=== PATIENT | female | born 1955 | race Caucasian/White ===

== ENCOUNTER 2020-05-27 15:29 | Outpatient (REF) | payer MEDICARE, SELFPAY | END 2020-05-27 15:30 | disposition home or self-care (01) | LOC: HO.LAB 15:29 | PROVIDERS: Visit Provider Internal Medicine | DX: Z20.822 Contact with and (suspected) exposure to COVID-19 (principal) | CPT/HCPCS: 36415; C9803; U0003; U0005 ==

== ENCOUNTER 2020-05-31 12:44 | Outpatient (REF) | payer MEDICARE, SELFPAY ==
--- NOTE | ~2020-05-31 | XR_ITS ---
EXAMINATION: XR HIP, RIGHT CLINICAL INFORMATION: Pain COMPARISON: None TECHNIQUE: Two views of the right hip and one view of the pelvis. FINDINGS: There is mild joint space narrowing of both hip joints. No fracture, dislocation or bone lesion is seen. Bones of the pelvis are unremarkable. There may be facet arthritis of the lower lumbar spine. Soft tissues are unremarkable. XR/XR hip RT w PEL1V IMPRESSION: Mild bilateral hip joint space narrowing.
== END 2020-05-31 12:45 | disposition home or self-care (01) ==
LOC: HO.HOSX 12:44
PROVIDERS: Visit Provider Orthopaedic Surgery
DX: M25.551 Pain in right hip (principal)
CPT/HCPCS: 73502

== ENCOUNTER → 2020-06-01 07:58 | Outpatient (BNVA) | payer MEDICARE, SELFPAY | PROVIDERS: PCP Internal Medicine; Visit Provider Orthopaedic Surgery | DX: M70.61 Trochanteric bursitis, right hip (principal) | CPT/HCPCS: 99202 ==

== ENCOUNTER 2024-06-19 16:42 | Emergency (ER) | payer MEDICARE, SELFPAY ==
--- NOTE | ~2024-06-19 | CT_ITS ---
CLINICAL HISTORY: fall with head strike, +LOC CT head without contrast Comparison: CT of the face from the same day. Findings: No acute intracranial hemorrhage. No midline shift or hydrocephalus. No large arterial territorial infarction accounting for artifacts. Scalp hematoma including over the anterior frontal convexities with soft tissue defect and gas. Acute bilateral nasal bone fractures. Small air-fluid level in the sphenoid sinus. Small right mastoid effusion. IMPRESSION: 1. No acute intracranial hemorrhage. 2. Anterior scalp hematoma with fundal convexity scalp defect. 3. Acute bilateral nasal bone fractures. This document has been electronically signed by: Buddy Todd MD on 06/19/2024 19:30:56
--- NOTE | ~2024-06-19 | CT_ITS ---
CLINICAL HISTORY: fall , chest pain, multiple ribs fracture CT chest without contrast Comparison: None available Findings: Mild rib deformities appear old/chronic. No pneumothorax or pleural effusion. Mild pleural thickening on the left. Mild bibasilar atelectasis and scarring, left worse than right. Previous left mastectomy changes noted. Two in 3 mm pulmonary nodules are solid in the right upper lobe. Pleural-based pulmonary nodule is 5 mm solid posterior in the right lower lobe. [id number] hiatal hernia. Imaged upper abdomen is otherwise unremarkable. Degenerative changes include imaged shoulders and imaged spine. Minimal vertebral height losses appear old. IMPRESSION: 1. Mild atelectasis. 2. 5 mm pleural-based pulmonary nodule in the right lower lobe. Please consider 3 to six-month follow-up to ensure continued stability This document has been electronically signed by: Buddy Todd MD on 06/19/2024 20:07:25
--- NOTE | ~2024-06-19 | CT_ITS ---
CLINICAL HISTORY: fall on concrete, periorbital ecchymosis, nasal sw CT maxillofacial without contrast Comparison: None Findings: Acute comminuted bilateral nasal bone fractures with anterior depression. Multiple fracture fragments deviate to the left. Acute comminuted fracture of the nasal septum with, major anterior fragments, displaced to the right. Mild mucosal thickening of the imaged paranasal sinuses. Air-fluid levels in the sphenoid sinus. Soft tissue gas is multifocal including nasal bridge with soft tissue swelling and superficial anterior hematoma of the nose. Bilateral periorbital soft tissue swelling appears preseptal. No displaced acute orbital wall fracture. No displaced mandible fracture. No dislocation of the temporomandibular joints. Devitalized bone of the maxilla secondary to absence of the teeth. Metal artifacts noted. Degenerative changes include imaged spine. Additional soft tissue swelling with scalp defect and gas over the frontal convexities anterior forehead. IMPRESSION: 1. Acute comminuted bilateral nasal bone fractures. 2. Acute comminuted nasal septum fracture. This document has been electronically signed by: Buddy Todd MD on 06/19/2024 19:33:04
--- NOTE | ~2024-06-19 | CT_ITS ---
CLINICAL HISTORY: fall with head strike CT cervical spine without contrast Comparison: None Findings: No acute fracture of the cervical spine. Straightening of the cervical lordosis. No significant listhesis. Disc osteophyte complexes with mild-moderate spinal canal stenosis at C4-C5, C5-C6, C6-C7, and C7-T1. Spinal stenosis appears most pronounced at C5-C6. Multifocal moderate foraminal narrowing including C4-C5 to the cervicothoracic junction; with moderate to severe foraminal narrowing at C5-C6 and C6-C7. Ligament calcifications are multifocal. No paraspinal hematoma. Metal artifacts are noted. Mild scarring of the imaged lung apices. Secretions of the imaged trachea airway. IMPRESSION: No acute fracture of the cervical spine. This document has been electronically signed by: Buddy Todd MD on 06/19/2024 19:34:08
--- NOTE | 2024-06-19 16:47 | ED.GENADULT ---
HPI - General Adult General Chief complaint: Head Injury Stated complaint: fell,facial inj Time Seen by Provider: 06/19/24 17:33 Source: patient and family (Friend) Mode of arrival: ambulatory Limitations: no limitations History of Present Illness ED Provider: DR. Che HPI narrative: 68-year-old female was walking with her dog which pulled her forward causing her to fall landing on her both elbows right hand and face, patient reported a brief period of LOC. Patient sustained bilateral chest pain, 2 lacerations on the forehead, small laceration on the inner surface of the lower lip, nose hematoma, bilateral periorbital hematomas, right elbow abrasion, right hand small abrasion. Related Data Home Medications ?Medication ?Instructions ?Recorded ?Confirmed levothyroxine 75 mcg capsule 75 mcg PO DAILY 06/01/20 zolpidem 5 mg tablet 5 mg PO BEDTIME PRN 06/01/20 Previous Rx's ?Medication ?Instructions ?Recorded ibuprofen 600 mg tablet 600 mg PO Q8H PRN pain #14 tabs 06/19/24 Allergies Allergy/AdvReac Type Severity Reaction Status Date / Time acetaminophen [From Percocet] AdvReac Gastrointestinal Verified 06/19/24 17:02 Upset oxycodone [From Percocet] AdvReac Gastrointestinal Verified 06/19/24 17:02 Upset Review of Systems Review of Systems: All other systems are reviewed and are negative Constitutional: Reports as per HPI and Reports no additional constitutional complaints Eyes: Reports as per HPI and Reports no additional eye complaints Reports system reviewed and no additional complaints, except as documented Cardiovascular: Reports as per HPI and Reports no additional cardiovascular complaints Respiratory: Reports as per HPI and Reports no additional respiratory complaints Gastrointestinal: Reports as per HPI and Reports no additional gastrointestinal complaints Genitourinary: Reports no additional female genitourinary complaints Musculoskeletal: Reports no additional musculoskeletal complaints Skin/Breast: Reports system reviewed and no additional complaints, except as docu Psychiatric: Reports no additional psychiatric complaints Endocrine: Reports no additional endocrine complaints Hematologic/Lymphatic: Reports no additional hematologic/lymphatic complaints Allergic/Immunologic: Reports no additional allergic/immunologic complaints Reports system reviewed and no additional complaints, except as documented and Reports Abnormal speech present PMFSH Past Medical History Medical History Hx of breast cancer Hypercholesteremia Surgical History H/O mastectomy Social History Social History Smoked in Last 30 Days: No Use of substances other than those prescribed or required for medical reasons: No Advance Directives: No Advance Directives Information Provided: No Current occupational status: retired Physical Exam ED Vital Signs: Vital Signs - 24 hr 06/19/24 16:48 06/19/24 18:31 06/19/24 20:00 Temperature 97 F 98.0 F 98.1 F Pulse Rate 72 69 57 Respiratory Rate 16 18 17 Blood Pressure 185/69 H 147/65 H 162/70 H Pulse Oximetry 97 95 97 Oxygen Delivery Method Room Air Room Air Room Air BMI result Body Mass Index 36.9 Vital signs have been reviewed and appear to be correct. Blood pressure elevated. Heart rate normal. Respiratory rate normal. Temperature normal. Oxygen saturation normal. Appearance: Alert. Oriented X3. No acute distress. Head: Normal external exam. Normocephalic. Atraumatic. No Real signs noted. No raccoon eyes noted. Mouth exam: Less than 1 cm laceration on the inner mucosal surface of the lower lip, no active bleeding. Face: Bilateral periorbital hematoma, diffuse nasal hematoma, no septal hematoma, no deviated septum, tenderness to touch on the nasal bones Eyes: PERRLA. EOMI. Conjunctiva and sclera normal. Eyelids normal. ENT: TM's Normal. Pharynx normal. Uvula midline. Moist mucous membranes. No trismus noted. No drooling noted. No muffled voice noted. Neck: Normal inspection. Neck supple. FROM. No adenopathy. Thyroid Normal. No meningeal signs. No neck mass noted. CVS: Normal heart rate and rhythm. Heart sound normal. No murmurs noted. Pulses normal throughout. Respiratory: No respiratory distress. Painless inspiration. Breath sounds normal. No wheezes/rales/rhonchi noted. Chest nontender. No accessory muscle usage noted or decreased air movement noted. Abdomen: Soft and nontender. Bowel sounds normal in all 4 quadrants. No distention noted. No organomegaly noted. No visible injury noted. Back: No CVA tenderness. Full range of motion noted. Skin: Skin warm and dry. Normal skin color. Normal skin turgor. No rashes/lesions/lacerations noted. Extremities: No lower extremity edema. Extremities exhibit normal range of motion. Extremities nontender. Neuro: GCS 15. Mental status: Normal attention, orientation, memory, and affect. Cranial nerves: Pupils are equal, round and reactive to light, EOMI, visual rey are fall, face is symmetric, facial sensations are normal. Motor examination normal muscle tone, strength to 4 extremities. DTR are +2, planter's are flexor. Sensory exam; normal coordination, no ataxia, gait stable. Cerebellar exam: Woqlpi-mr-sasz and ecdr-fh-hzlu is normal. Extrapyramidal system: No tremors, no rigidity with normal facial expressions. Pronator drift not present Course Course Course Narrative: This is a rapid medical exam performed by Ronaldo Mercedes NP: Additional HPI, ROS, PE not included below will be deferred to primary provider. Patient is a 68-year-old female presenting to the ED with multiple facial injuries. Was walking her dog around noon when the dog saw another dog and pulled her to the ground. She landed directly on her face. Family states that once patient developed bruising under her eyes they decided to bring her to the ED. Tdap not utd. Vision normal. Denies loose teeth. Took Aleve prior to arrival. Bilateral rib pain. Has blood when blowing her nose. Had to call son in law to help her up. Believes she had LOC. Plan: CT head, neck, and facial bones, rib xray, update Tdap Reevaluation(s) Reevaluation #1: S/p fall with head injury. 1. Closed head injury with GCS of [address] 2. Nasal and periorbital hematomas with nasal fracture. 3. 2 small facial laceration patient agreed to Dermabond but not 2 stitches. 4. Small laceration on the inner aspect of the lower lip that patient is refusing to suture. 5. Unknown tetanus patient declined tetanus booster. 6. Bilateral chest pain CT shows no rib fracture, no lung contusion. Hemodynamically stable with O2 sat of 97% on air. CT reveals right lower lung nodule patient was history of breast cancer which raise concern of metastases, findings were discussed with the patient and to follow-up with PCP. Time: 20:30 Medications Administered Discontinued Medications Generic Name Dose Route Start Last Admin Trade Name Freq PRN Reason Stop Dose Admin Bacitracin 1 appl 06/19/24 18:05 06/19/24 18:44 Bacitracin Oint 0.9 Gm Packet TOPICAL 06/19/24 18:06 1 appl ONCE ONE Administration Protocol Medical Decision Making Differential Diagnosis Differential Diagnoses: The differential diagnosis associated with the presentation includes (Intracranial bleed, facial fracture, nasal fracture, cervical spine fracture, bilateral rib fracture, lung contusion, extremity injury.) Admission/Observation Consideration of admission/observation: Escalation of care including admission/observation considered Independent Interpretation I performed an independent interpretation of an: CT Scan (Head: Facial: Cervical spine: No acute intracranial hemorrhage/ No acute cervical spine fracture./1. Acute comminuted bilateral nasal bone fractures. 2. Acute comminuted nasal septum fracture. /Chest:5 mm pleural-based pulmonary nodule in the right lower lobe. Please consider 3 to six-month foll) Radiology Impression Discussion of test interpretation with radiology: I have reviewed the radiologist's reading. Discharge Plan Discharge Clinical Impression: Laceration of lip, Closed head injury, Forehead laceration, Acute traumatic injury of chest wall, Contusion of right elbow, Lung nodule, Closed fracture nasal bone Patient Disposition: Home, Self-Care Instructions: Head Injury (ED), Pulmonary Nodules (ED), Laceration Without Closure (ED) Prescriptions: New ibuprofen 600 mg tablet 600 mg PO Q8H PRN (Reason: pain) Qty: 14 0RF Referrals: Margo Collazo, TRISTA [Primary Care Provider] - Warren Mckeon [Physician] - Print Language: [place] Arabian
[2024-06-19 16:48] VITALS: BP 185/69; PULSE 72; RESP 16; TEMP 36.1; O2SAT 97; BMI 36.9
--- OUTSIDE RECORDS SUMMARY | 2024-06-19 18:28 | XMS_ITS | Clinical Summary ---
Author Organization [facility] Address [address] [place] [address] Phone Care Team Providers Care Soapstoner Name Role Phone Margo Collazo NP Primary Care Provider [phone] Allergies Active Allergy Reactions Criticality Noted Date Comments Hydrocodone-Acetaminophen 04/12/2018 Oxycodone-Acetaminophen 04/12/2018 Medications hydrocortisone 2.5 % ointment Apply topically 2 (two) times a day. Active levothyroxine (SYNTHROID, LEVOTHROID) 75 mcg tablet Take 1 tablet (75 mcg total) by mouth every morning on an empty stomach. Active rosuvastatin (CRESTOR) 20 mg tablet Take 1 tablet (20 mg total) by mouth 1 (one) time each day. Active omeprazole (PriLOSEC) [address] capsule TAKE 1 CAPSULE BY MOUTH EVERY DAY 90 capsule 1 4 Active traZODone (DESYREL) 100 mg tablet TAKE 1 TABLET BY MOUTH EVERY DAY AT BEDTIME NEEDED FOR SLEEP 90 tablet 1 5 Active hydrOXYzine HCL (ATARAX) 25 mg tablet Take 1 tablet (25 mg total) by mouth 1 (one) time. 4 Active naproxen (NAPROSYN) 500 mg tabletIndicatio ns:Neck pain,Chronic right shoulder pain Take 1 tablet (500 mg total) by mouth 2 (two) times a day if needed for mild pain (pain). 60 tablet 11 5 04/02/19 26 Active fluticasone propionate (FLONASE) 50 mcg/actuation nasal sprayIndication s:Acute rhinitis Administer 2 sprays into each nostril 1 (one) time each day. Shake gently. Before first use, prime pump. After use, clean tip and replace cap. 16 g 5 5 04/02/19 26 Active cetirizine (ZyrTEC) 10 mg tabletIndicatio ns:Acute rhinitis Take 1 tablet (10 mg total) by mouth 1 (one) time each day. 30 each 2 5 07/02/19 25 Active escitalopram (LEXAPRO) 10 mg tablet Take 1 tablet (10 mg total) by mouth 1 (one) time each day. 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 05/2023 Gastroesophageal reflux disease without esophagi tis 02/05/2024 Primary insomnia 02/05/2024 AZIZA (generalized anxiety disorder) 02/05/2024 Malignant neoplasm of overla pping sites of left breast in female, estrogen receptor negative ([facility] V24, [facility] V28) 11/01/2023 Encounters Date Type Department Care Team Description 05/27/2024 Telephone Internal Medicine - [address] [phone] Margo Collazo NP Referral (External Referral: QMPT) 04/08/2024 Telephone Internal Medicine - [address] [phone] Sid Best MD Referral (Fax requesting insurance referral - physiatry/PM&R) 04/07/2024 Telephone Internal Medicine - [address] [phone] Margo Collazo NP Medication Problem 04/02/2024 11:15 AM EST Office Visit Internal Medicine - [place] [address] [place] [address] Simin Huang, POLI Neck pain (Primary Dx); Chronic right shoulder pain; Class 2 obesity without serious comorbidity with body mass index (BMI) of 36.0 to 36.9 in adult, unspecified obesity type; Acute rhinitis; Gastroesophageal reflux disease without esophagitis; Eczema, unspecified type; Hypercholesterolemia 03/31/2024 9:50 AM EST Lab Draw Station [address] Hypercholesterolemia from Last 3 Months Immunizations Name Administration Dates Next Due Pfizer SARS-CoV-2 COVID-19, mRNA, LNP-S, preservative free 06/09/2020 Surgical History Surgery Date Site/Laterality Comments OTHER SURGICAL HISTORY Left PROCEDURE: HISTORICAL COMPLETE UNILATERAL MASTECTOMY Medical History Medical History Date Comments History of breast cancer DX:Hist ory of breast cancer Eczema herpeticum DX:Eczema herp eticum Gastro-esophageal reflux dis ease without esophagitis DX:Gastro-esophageal reflux disease without esophagitis Family History Medical History Relation Name Comments Coronary artery disease Father Coronary artery disease Mother Hypertension Mother Relation Name Status Comments Father Mother Social History Tobacco Use Types Packs/Day Years Used Date Smoking Tobacco: Former Cigarettes Smokeless Tobacco: Never Tobacco Cessation:Counseling Given: Not Answered Alcohol Use Standard Drinks/Week Comments Not Currently 0 (1 standard drink = 0.6 oz pur e alcohol) Comments No Sex and Gender Information Value Date Recorded Sex Assigned at Not on file Legal Sex Female 1:32 PM EST Gender Identity Not on file Sexual Orientation Not on file Obstetrics History Last Filed Vital Signs Vital Sign Reading Time Taken Comments Blood Pressure 143/76 04/02/2024 11:14 AM EST Pulse 66 04/02/2024 11:14 AM EST auto cuff Temperature 36.1 ??C (97 ??F) 03/11/2024 2:39 PM EST Respiratory Rate - - Oxygen Saturation 98% 03/11/2024 2:39 PM EST Inhaled Oxygen Concentration - - Weight 91.1 kg (200 lb 14.4 oz) 025 11:14 AM EST Height 157.5 cm (5' 2 ) 02/05/2024 10:0 6 AM EST Body Mass Index 36.75 02/05/2024 10:06 AM EST Plan of Treatment Upcoming Encounters Date Type Department Care Team (Late st Contact Info) Description 08/05/2024 1:30 PM EDT Office Visit Internal Medicine - [facility] [address] [place] [address] Margo Collazo NP [address] [place] [address] 09/10/2024 10:00 AM EDT Office Visit [facility] Hematology Oncology [address] [place] [phone] Chris Richey MD [address] [place] [phone] 12/17/2024 10:30 AM EDT Consult Bariatric Surgery - [place] [address] [phone] Aarti Yip PA [address] [address] Health Maintenance Due Date Last Done Comments DTaP,Tdap,and Td Vaccines (1 - Tdap) 1973 Pneumococcal Vaccine: 50+ Years (1 of 2 - PCV) 1973 Zoster Vaccines (1 of 2) 1973 COVID-19 Vaccine (2 - Pfizer risk series) 06/30/2020 06/09/2020 Depression Screening 01/31/2022 Falls Risk Assessment 01/31/2022 Hepatitis C Screening 01/31/2022 Osteoporosis Screening (Bone Density Screening) 01/31/2022 Social Influencers of Health Screening 01/31/2022 Hypertension/CHF/CAD Annual BMP Blood Test 07/30/2024 07/31/2023 Influenza Vaccine (Season Ended) 2024 Breast Cancer Screening 09/02/2025 09/03/2023 Cholesterol Screening (Lipid Panel) 03/31/2029 03/31/2024, 07/31/2023 RSV Immunization Adult Patients (1 - 1-dose 75+ series) 2029 Colorectal Cancer Screening: Colonoscopy 08/31/2032 08/31/2022 HIB Vaccines Aged Out No longer eligi ble based on patient's age to complete this topic HPV Vaccines Aged Out No longer eligi ble based on patient's age to complete this topic Hepatitis A Vaccines Aged Out No long er eligible based on patient's age to complete this topic Hepatitis B Vaccines Aged Out No long er eligible based on patient's age to complete this topic IPV Vaccines Aged Out No longer eligi ble based on patient's age to complete this topic MMR Vaccines Aged Out No longer eligi ble based on patient's age to complete this topic Meningococcal ACWY Vaccine Aged Out N o longer eligible based on patient's age to complete this topic Meningococcal B Vaccine Aged Out No l onger eligible based on patient's age to complete this topic RSV Immunization Patients Under 20 months Aged Out No longer eligible b ased on patient's age to complete this topic Varicella Vaccines Aged Out No longer eligible based on patient's age to complete this topic Procedures Procedure Name Priority Date/Time Associated Diagnosis Comments ALANINE AMINOTRANSFERASE Routine 025 9:57 AM EST Hypercholesterolem ia ASPARTATE AMINOTRANSFERASE Routine 03/31/2024 9:57 AM EST Hypercholesterolem ia LIPID PANEL WITH REFLEX TO DIRECT LDL Routine 03/31/2024 9:57 AM EST Hypercholesterolem ia from Last 3 Months Results * (ABNORMAL) Lipid panel with reflex to direct LDL (03/31/2024 9:57 AM EST) Cholesterol 355(H) 0 - 200 mg/dL LAB CHEMISTRY METHOD 03/31/2024 2:59 PM EST [facility] Triglycerides 89 0 - 150 mg/dL LAB CHEMISTRY METHOD 03/31/2024 2:59 PM [facility] HDL 66 >=40 mg/dL LAB CHEMISTRY METHOD 03/31/2024 2:59 PM [facility] LDL Calculated 271(H) 0 - 100 mg/dL LAB CHEMISTRY METHOD 03/31/2024 2:59 PM [facility] VLDL Cholesterol Hussein 17.8 mg/dL LAB CHEMISTRY METHOD 03/31/2024 2:59 PM EST [facility] Non HDL Chol. (LDL+VLDL) 289(H) <145 mg/dL LAB CHEMISTRY METHOD 03/31/2024 2:59 PM EST [facility] Chol/HDL Ratio 5.4(H) 0.0 - 4.4 LAB CHEMISTRY METHOD 03/31/2024 2:59 PM EST [facility] Blood Venous blood specimen / Unknown Venipuncture / Unknown 03/31/2024 9:57 AM EST 03/31/2024 9:57 AM EST Margo Collazo NP LAB BLOOD ORDERABLES Final Resu lt Performing Organization Address City/[facility]/ZIP Co de Phone Number [facility] [address] [place] [address], [place] [phone] * Alanine aminotransferase (03/31/2024 9:57 AM EST) ALT (SGPT) 16 10 - 60 unit/L LAB CHEMISTRY METHOD 03/31/2024 2:59 PM EST [facility] Blood Venous blood specimen / Unknown Venipuncture / Unknown 03/31/2024 9:57 AM EST 03/31/2024 9:57 AM EST us Margo Collazo NP LAB BLOOD ORDERABLES Final Resu lt [facility] [address] [place] [address], [place] [phone] * Aspartate aminotransferase (03/31/2024 9:57 AM EST) AST (SGOT) 15 10 - 42 unit/L LAB CHEMISTRY METHOD 03/31/2024 2:59 PM EST [facility] Blood Venous blood specimen / Unknown Venipuncture / Unknown 03/31/2024 9:57 AM EST 03/31/2024 9:57 AM EST us Margo Collazo NP LAB BLOOD ORDERABLES Final Resu lt [facility] [address] [place] [address], [place] [phone] from Last 3 Months Insurance [facility] Care Teams Soapstoner Relationship Specialty Start Date End Date Margo Collazo NP [address] [place] [address] PCP - General Primary Care 01/23/24
--- OUTSIDE RECORDS SUMMARY | 2024-06-19 18:28 | XMS_ITS | Encounter Summary ---
Author Organization [facility] Address [address] [place] [address] Care Team Providers Care Central Service Tech Name Role Phone Margo Collazo NP Primary Care Provider [phone] Reason for Visit * Reason Onset Date Comments Referral 01/22/2024 Encounter Details Date Type Department Care Team (Late st Contact Info) Description 01/22/2024 Telephone [facility] - [facility] [address] [place] [phone] Sid Best MD [address] [place] [place] [id number] Referral Social History Tobacco Use Types Packs/Day Years Used Date Smoking Tobacco: Former Cigarettes Smokeless Tobacco: Never Alcohol Use Standard Drinks/Week Comments Not Currently 0 (1 standard drink = 0.6 oz pur e alcohol) Comments Unknown Sex and Gender Information Value Date Recorded Sex Assigned at Not on file Legal Sex Female 1:32 PM EST Gender Identity Not on file Sexual Orientation Not on file documented as of this encounter Progress Notes * Noemi Almodovar - 01/23/2024 9:35 AM EST All set * Sid Best MD - 01/22/2024 11:03 AM EST Pls change pcp back to Margo-- I confirmed this in [facility] -- thank you * Christi Mosley MA - 01/22/2024 10:20 AM EST Referral pending * Silvia Fu - 01/22/2024 9:53 AM EST Referral Request: What insurance does the patient have today? bcbs Referrals cannot be processed if the insurance is not accurate. If the insurance listed above in red is NO BILLING INFORMATION FOUND FOR THIS ENCOUTNER The patients correct insurance must be obtained and registered in [facility] or their referral can not be processed. Is this a retro request? yes. If yes for what date of service do you need the retro referral? 09/04/23 Who is calling to request this referral? pt If the caller is not the patient, what is their name? not applicable Ask the patient WHO referred them to this specialty: Patient saw Dr. Best at [facility] for the problem and was told if symptoms did not resolve or worsen they would refer them to this specialty FIRST and LAST NAME of SPECIALIST PATIENT is seeing: Dr. Marcus Lord What specialty is this? opthelmology DIAGNOSIS Patient is being seen for (Not a body part or a procedure): cataracts Have you seen this SPECIALIST for this PROBLEM/DX before? If YES, when? Yes. 09/04/23 Have you checked REVIEW or the APPT DESK to see if this referral has already been done or has visits left? yes Is this visit: Initial Visit Address of Specialist: [address] [place] [address] Phone # of Specialist: [phone] Fax #: (if applicable): unknown Does patient have an appointment scheduled?: no Date of appointment- (including a retro-request): 09/04/23 Is this appointment related to: n/a documented in this encounter Plan of Treatment Upcoming Encounters Date Type Department Care Team (Late st Contact Info) Description 08/05/2024 1:30 PM EDT Office Visit Internal Medicine - [facility] [address] [place] [address] Margo Collazo NP [address] [place] [address] 09/10/2024 10:00 AM EDT Office Visit [facility] Hematology Oncology [address] [place] [phone] Chris Richey MD [address] [place] [phone] 12/17/2024 10:30 AM EDT Consult Bariatric Surgery - [place] [address] [phone] Aarti Yip PA [address] [address] documented as of this encounter Visit Diagnoses Diagnosis Cataract of both eyes, unspecified cataract type- Primary documented in this encounter Care Teams Central Service Tech Relationship Specialty Start Date End Date Margo Collazo NP [address] [place] [address] PCP - General Primary Care 01/23/24 documented as of this encounter
--- OUTSIDE RECORDS SUMMARY | 2024-06-19 18:28 | XMS_ITS | Clinical Summary ---
Author Organization [facility] Address [address] [place] [address] Care Team Providers Care Signals Intelligence Superintendent Name Role Phone Sid Best MD Primary Care Provider Allergies Active Allergy Reactions Criticality Noted Date Comments Oxycodone-Acetaminophen 04/12/2018 Hydrocodone-Acetaminophen 04/12/2018 Medications Medication Sig Dispensed Refills Start Date End Date Status levothyroxine (SYNTHROID) tablet 75 mcg Take 1 tablet (75 mcg total) by mouth every morning on an empty stomach. 0 Active omeprazole (PriLOSEC) 20 MG capsule Take 1 capsule (20 mg total) by mouth daily. prn 0 Active hydrocortisone 2.5 % ointment Apply topically 2 (two) times a day. 0 Active atorvastatin (LIPITOR) tablet 40 mg Take 1 tablet (40 mg total) by mouth daily. 0 Active zolpidem (AMBIEN) 5 MG tablet Take 1 tablet (5 mg total) by mouth every night at bedtime as needed for sleep. 30 tablet 5 12/23/2019 Active simvastatin (ZOCOR) tablet 40 mg Take 1 tablet (40 mg total) by mouth every night at bedtime. 0 Active citalopram (CeleXA) 10 MG tablet Take 1 tablet (10 mg total) by mouth daily. 0 Active Active Problems Problem Noted Date Diagnosed Date Malignant neoplasm of overla pping sites of left breast in female, estrogen receptor negative 04/15/2018 Social History Tobacco Use Types Packs/Day Years Used Date Smoking Tobacco: Never Smokeless Tobacco: Never Sex and Gender Information Value Date Recorded Sex Assigned at Not on file Gender Identity Not on file Sexual Orientation Not on file Job Start Date Occupation Industry Not on file Not on file Not on file Last Filed Vital Signs Vital Sign Reading Time Taken Comments Blood Pressure 143/79 08/21/2023 3:48 PM EDT Pulse 58 08/21/2023 3:48 PM EDT Temperature 36.8 ??C (98.3 ??F) 08/21/2023 3:48 PM ED T Respiratory Rate - - Oxygen Saturation 98% 08/21/2023 3:48 PM EDT Inhaled Oxygen Concentration - - Weight 87.3 kg (192 lb 6.4 oz) 08/21/2023 3:48 P M EDT Height 157.5 cm (5' 2 ) 08/21/2023 3:48 PM EDT Body Mass Index 35.19 08/21/2023 3:48 PM EDT Plan of Treatment Health Maintenance Due Date Last Done Comments Hepatitis C Screening 1955 Pneumococcal Vaccine (1 of 2 - PCV) 1960 Depression Screening 1966 BMI Counseling 1972 Preventative Health Evaluation 1972 DTap / Tdap / Td (1 - Tdap) 1973 Shingrix-Zoster Vaccine (1 of 2) 1973 Colon Cancer Screening (Colonoscopy) 10/06/1999 Breast Cancer Screening (Mammogram) 2004 Fall Risk Assessment 10/06/2019 Osteoporosis Screening (DEXA Scan) 10/06/2019 COVID-19 Vaccine (2 - Pfizer risk series) 06/30/2020 06/09/2020 Influenza Vaccine (#1) 2023 RSV Adult > 60+ Yrs or Pregn ant (1 - 1-dose 75+ series) 2029 Hepatitis B Vaccines Aged Out No long er eligible based on patient's age to complete this topic RSV Ped < 20 months Aged Out No longe r eligible based on patient's age to complete this topic Care Teams Signals Intelligence Superintendent Relationship Specialty Start Date End Date Sid Best MD PCP - General Internal Medicine 08/21/23
--- OUTSIDE RECORDS SUMMARY | 2024-06-19 18:28 | XMS_ITS | Patient Health Record ---
Author Organization [facility] Address [address] [place] [address] Care Team Providers Care Sales Service Representative Name Role Phone LONNIE (RETIRED) Jessie, VAN Primary Care Provider Unavailable Lidia Bolanos Unavailable [phone] Allergies Allergen (clinical drug ingredient) Drug/Non Drug Allergy documented on EMR Reaction Allergy Type Onset Date Status VICODIN Nausea/Vomiting/ Diarrhea Drug Allergy Active Reason For Referral No Information Medications Medication SIG (Take, Route, Fr equency, Duration) Notes Start Date End Date Status Levoxyl 50MCG 1 ORAL daily for -3 Cody-MJ 03/23/2011 Active Simvastatin 40MG 1 ORAL daily for -3 Cody-MJ 03/23/2011 Active Social History Sexual History Question Answer Notes Had sex in the past 12 months (vaginal, oral, or anal)? No Problems Problem Type SNOMED Code ICD Code Onset Dates Problem Status W/U Status Risk Notes Problem Postmenopausal atrophic vaginitis (12043448) Postmenopausal atrophic vaginitis (N95.2) Active confirmed Problem Malignant neoplasm of female breast (497587958) Malignant neoplasm of unspecified site of left female breast (C50.912) Active confirmed Problem Malignant neoplasm of female breast (455158688) Malignant neoplasm of other specified sites of female breast (174.8) Active confirmed Diag Problem Hypothyroidism (08362653) Unspecified hypothyroidism (244.9) Active confirmed Major Problem Hyperlipidemia (56636054) Other and unspecified hyperlipidemia (272.4) Active confirmed Major Problem Esophageal reflux (947727143) Esophageal reflux (530.81) Active confirmed Major Problem Menopausal symptom (70252395) Symptomatic menopausal or female climacteric states (627.2) Active confirmed Major Problem Gynecological examination normal (240498021369511) Routine gynecological examination (V72.31) Active confirmed Major Problem Screening for malignant neoplasm of colon (074928585) Special screening for malignant neoplasms, colon (V76.51) Active confirmed Major Plan Of Treatment Pending Test Test Name Order Date MAMMOGRAM, SCREENING 12/28/2014 MAMMOGRAM, SCREENING 01/05/2016 MM Digital Mammo Screening 01/05/2016 Insurance Providers Payer Name Payer Address Payer Phone Subscriber Number Group Number Insured Name Patient Relationship to Insured Coverage Start Date Coverage End Date [employer] [place] [address] [place] [address] [id number] MIYA SAUNDERS Self - patient is the insured Medical (General) History Medical History History ICD Code Malignant neoplasm of overlapping sites of left female breast C50.812 Gastro-esophageal reflux disease without esophagitis K21.9 Other hyperlipidemia E78.4 Hypothyroidism, unspecified E03.9 Menopausal and female climacteric states N95.1 Surgical History Surgery Date(Month/Year) Left Masectomy Colonoscopy Hospitalization History Reason Date(Month/Year) 2 Vaginal Deliveries See Surgical Hx
[2024-06-19 18:31] VITALS: BP 147/65; PULSE 69; RESP 18; TEMP 36.7; O2SAT 95
[2024-06-19] MEDS: Bacitracin Oint 0.9 GM PACKET 1 APPL TOPICAL (18:44)
[2024-06-19 20:00] VITALS: BP 162/70; PULSE 57; RESP 17; TEMP 36.7; O2SAT 97
--- NOTE | 2024-06-19 20:06 | PC.NURSE ---
pt has 7/10 pain to her right shoulder and upper arm pain.
--- NOTE | 2024-06-19 20:09 | PC.NURSE ---
pt is thinking about the tdap vac.
[2024-06-19] MEDS: Ibuprofen 800 MG TABLET PO (20:35)
[2024-06-19] MEDS: Lidocaine HCl Viscous 2 % 15 ML SOLUTION MUCOUS MEM (20:36)
[2024-06-19] MEDS: Diphth,Pertus(ACell),Tet Adult 0.5 ML SYRINGE IM (20:39)
--- NOTE | 2024-06-19 20:43 | PC.NURSE ---
lidocaine swish and spit is helping the pt. pt is requesting a dose for home. provider made aware. no bleeding from the lower lip.
[2024-06-19 20:58] VITALS: BP 162/70; PULSE 57; RESP 17; TEMP 36.7; O2SAT 97
== END 2024-06-19 21:00 | disposition home or self-care (01) ==
PROVIDERS: Emergency Provider Emergency Medicine; PCP Nurse Practitioner Primary Care
DX: S01.511A Laceration without foreign body of lip, initial encounter (principal); S01.81XA Laceration without foreign body of other part of head, initial encounter; S09.90XA Unspecified injury of head, initial encounter; S02.2XXA Fracture of nasal bones, initial encounter for closed fracture; S50.311A Abrasion of right elbow, initial encounter; S29.9XXA Unspecified injury of thorax, initial encounter; S00.33XA Contusion of nose, initial encounter; S00.12XA Contusion of left eyelid and periocular area, initial encounter; S00.11XA Contusion of right eyelid and periocular area, initial encounter; S60.511A Abrasion of right hand, initial encounter; W18.39XA Other fall on same level, initial encounter; R91.1 Solitary pulmonary nodule; E78.00 Pure hypercholesterolemia, unspecified; Z85.3 Personal history of malignant neoplasm of breast; Y93.K1 Activity, walking an animal; Y92.480 Sidewalk as the place of occurrence of the external cause; Y99.9 Unspecified external cause status; Z23 Encounter for immunization
CPT/HCPCS: 12011; 70450; 70486; 71250; 72125; 90471; 90715; 99284

== ENCOUNTER → 2024-06-19 16:52 | Outpatient (BNV) | payer MEDICARE, SELFPAY | PROVIDERS: Emergency Provider Emergency Medicine; PCP Nurse Practitioner Primary Care; Visit Provider Radiology Neuroradiology | DX: S02.2XXA Fracture of nasal bones, initial encounter for closed fracture (principal); S09.90XA Unspecified injury of head, initial encounter; S00.03XA Contusion of scalp, initial encounter; W01.198A Fall on same level from slipping, tripping and stumbling with subsequent striking against other object, initial encounter; R91.1 Solitary pulmonary nodule; S22.49XA Multiple fractures of ribs, unspecified side, initial encounter for closed fracture; W18.30XA Fall on same level, unspecified, initial encounter; R52 Pain, unspecified | CPT/HCPCS: 70450; 70486; 71250; 72125 ==

== ENCOUNTER 2024-09-26 11:59 | Emergency (ER) | payer MEDICARE, SELFPAY ==
[2024-09-26 12:07] VITALS: BP 147/78; PULSE 70; RESP 16; TEMP 36.3; O2SAT 98; BMI 35.7
--- NOTE | 2024-09-26 12:07 | ED.GENADULT ---
HPI - General Adult General Chief complaint: Fall Stated complaint: IV Fluids Time Seen by Provider: 09/26/24 15:05 Source: patient Mode of arrival: ambulatory Limitations: no limitations History of Present Illness ED Provider: HPI narrative: 68-year-old woman, presenting with reports of unsteady gait for many years, she states she has had an episode of nausea and dizziness this morning, was positional, has had vertigo in the past and it felt similar, she also had a fall last week and was seen at [facility], there is no CT of the brain done reported that point, but no vision changes or any worsening symptoms since the fall. No dysuria, she took amoxicillin for a dog bite, and has had nausea vomiting and diarrhea. States does not drink enough fluids Related Data Home Medications ?Medication ?Instructions ?Recorded ?Confirmed levothyroxine 75 mcg capsule 75 mcg PO DAILY 06/01/20 zolpidem 5 mg tablet 5 mg PO BEDTIME PRN 06/01/20 Previous Rx's ?Medication ?Instructions ?Recorded ibuprofen 600 mg tablet 600 mg PO Q8H PRN pain #14 tabs 06/19/24 lidocaine HCl 2 % mucosal solution 1 appl mucous membrane BID PRN 06/19/24 (Lidocaine Viscous) pain #100 mL methylprednisolone 4 mg tablets in 4 mg PO DAILY #21 ea 09/26/24 a dose pack (Medrol (Andrés)) scopolamine base 1 mg over 3 days 1 patch transdermal Q3D PRN 09/26/24 transdermal patch vertigo 7 days #4 ea Allergies Allergy/AdvReac Type Severity Reaction Status Date / Time acetaminophen (From Percocet) AdvReac Gastrointestinal Verified 09/26/24 12:12 Upset amoxicillin AdvReac Gastrointestinal Verified 09/26/24 12:13 Upset oxycodone (From Percocet) AdvReac Gastrointestinal Verified 09/26/24 12:12 Upset Review of Systems Constitutional: Constitutional: Reports as per [facility] Past Medical History Medical History Hx of breast cancer Hypercholesteremia Surgical History H/O mastectomy Social History Social History Advance Directives: No Advance Directives Information Provided: No Do you have a plan to hurt others: No Plan Current occupational status: retired Physical Exam ED Vital Signs: Vital Signs - 24 hr 09/26/24 12:07 09/26/24 14:41 09/26/24 14:43 Temperature 97.3 F Pulse Rate 70 56 60 Respiratory Rate 16 Blood Pressure 147/78 H 168/70 H 162/78 H Pulse Oximetry 98 Oxygen Delivery Method Room Air 09/26/24 14:44 09/26/24 16:23 Temperature 97.9 F Pulse Rate 71 59 Respiratory Rate 16 Blood Pressure 155/84 H 145/68 H Pulse Oximetry 96 Oxygen Delivery Method Room Air BMI result Body Mass Index 35.7 NIH Stroke Scale Time: 15:15 Level of Consciousness: Alert Level of Consciousness Questions: Answers both questions correctly Level of Consciousness Commands: Performs both tasks correctly Best Gaze: Normal Visual: No visual loss Facial Palsy: Normal Motor Arm (Right): No drift Motor Arm (Left): No drift Motor Leg (Right): No drift Motor Leg (Left): No drift Limb Ataxia: Absent Sensory: Normal Best Language: No aphasia Dysarthia: Normal Extinction and Inattention: No abnormality Score: 0 Course Course Course Narrative: RME, this is a rapid medical exam performed by Earl Willingham please refer to primary provider for complete H&P- 68 year old female presents for evaluation of dizziness since waking up this morning. She has been taking Augmentin for a dog bite with last dose being last night. She reports diarrhea since beinmg on the antibiotic. Plan for labs, orthostatic vital signs and c diff testing. Reevaluation(s) Reevaluation #1: + malcom tried to call patient 09/27/24 311pm left message to return phone call MAYRA Medications Administered Discontinued Medications Generic Name Dose Route Start Last Admin Trade Name Freq PRN Reason Stop Dose Admin Famotidine 20 mg 09/26/24 15:22 09/26/24 15:58 Famotidine/Pf 20 Mg/2 Ml Vial IVPUSH 09/26/24 15:23 20 mg ONCE ONE Administration Lactated Ringer's 1,000 mls @ 999 mls/hr 09/26/24 15:01 09/26/24 15:59 Lr IV 09/26/24 16:01 Not Given .Q1H1M ONE Sodium Chloride 1,000 mls @ 999 mls/hr 09/26/24 15:30 09/26/24 17:00 Ns IV 09/26/24 16:30 Infused .Q1H1M JUSTICE Infusion Ondansetron HCl 4 mg 09/26/24 15:22 09/26/24 15:58 Ondansetron Hcl 4 Mg/2 Ml Vial IVPUSH 09/26/24 15:23 4 mg ONCE ONE Administration Scopolamine 1.5 mg 09/26/24 15:22 09/26/24 15:58 Scopolamine 1.5 Mg Patch.Td.3 EAR-BEHIND 09/26/24 15:23 1.5 mg ONCE ONE Administration Medical Decision Making Medical Decision Making MDM Narrative: I blood work supportive of dehydration, BUN is elevated, other considerations include C diff colitis, stool sample has been sent, ECG without dysrhythmia, no evidence for new trauma or any neurologic signs to suspect an acute stroke I do recommend that she has not outpatient MRI to evaluate for any cerebellar strokes or lesions, CT is not a good study for that, and also she has had CT in June of this year did not really feel anything in it area but I do believe she needs an MRI of the brain as she has reports unsteady gait for many years, she sounds like also has had vestibular therapy did not help her. Patient re-evaluated at 17:32, she is able to ambulate, she does not have a toxic gait, when she does close her eyes there was some swelling but she did not fall. I spoke with the daughter at bedside she does require an MRI on outpatient basis. She also then endorse tenderness along her right ITB band, and she is going to be on physical therapy for that. Physical exam consistent with iliotibial band syndrome Differential Diagnosis Differential Diagnoses: The differential diagnosis associated with the presentation includes (Cerebellar stroke, vertigo, dehydration, electrolyte derangements, dysrhythmia) Admission/Observation Consideration of admission/observation: Escalation of care including admission/observation considered 2022 Emergency Medicine Coding Guide from [email or web address] on 09/26/2024 All calculations should be rechecked by clinician prior to use RESULT SUMMARY: 4 Estimated Level of Service Problems: Moderate (4) Risk: Moderate (4) Data: Extensive (5) NARRATIVE MDM: This patient's problem complexity is Moderate as patient: with chronic illness(es) with exacerbation/progression/side effects of treatment. This patient's risk is Moderate due to: overall presentation requiring evaluation for a potentially Moderate-risk process. This patient's data complexity is Extensive due to: -multiple tests ordered -independent interpretation of imaging or EKG INPUTS: Number and Complexity ?> 3 = 4: chronic illness with exacerbation (c) Risk level ?> 3 = Moderate Tests ordered ?> 3 = >= Tests results reviewed (excluding labs) ?> 1 = 1 Prior external notes reviewed ?> 0 = 0 Assessment requiring and independent historian ?> 0 = No Independent interpretation of tests ?> 1 = Yes Discussed management/test interpretation w/external professional ?> 0 = No Lab Data MDM Lab Attestation statement: I reviewed the patient's lab results. 09/26/24 13:17 09/26/24 13:17 Labs: Lab Results 09/26/24 09/26/24 09/26/24 Range/Units 13:17 14:39 17:11 WBC 7.3 (4.8-10.8) X10*3/uL RBC 4.54 (4.20-5.50) X10*6/uL Hgb 12.7 (12.0-16.0) g/dl Hct 38.1 (37.0-47.0) % MCV 83.9 (80.0-98.0) fL MCH 28.0 (27.0-33.0) pg MCHC 33.3 (31.0-35.0) g/dl RDW 13.2 (11.0-16.0) % Plt Count 245 (160-400) X10*3/uL MPV 9.0 L (9.4-12.3) fL Immature Gran % (Auto) 0.4 (0.0-0.4) % Neut % (Auto) 68.1 (45-73) % Lymph % (Auto) 21.0 (20-40) % [place] % (Auto) 9.0 (2-11) % Eos % (Auto) 1.1 (0-4) % Baso % (Auto) 0.4 (0-2) % Lymph # (Auto) 1.5 (1.2-4.9) X10*3/uL [place] # (Auto) 0.7 (0.1-1.2) X10*3/uL Eos # (Auto) 0.1 (0.0-0.4) X10*3/uL Baso # (Auto) 0.0 (0.0-0.2) X10*3/uL Abs Immat Gran (auto) 0.03 (0.00-0.03) X10*3/uL Absolute Neuts (auto) 5.0 (2.0-8.3) x10*3/uL Absolute Nucleated RBC 0.000 (0.0-0.012) X10*3/uL Nucleated RBC % (auto) 0.0 (0.0-0.2) /100WBC Sodium 141 (135-145) mmol/L Potassium 4.3 (3.3-5.1) mmol/L Chloride 107 (96-108) mmol/L Carbon Dioxide 27 (22-29) mmol/L Anion Gap 11 L (12-20) BUN 18 H (9-16) mg/dL Creatinine 0.80 (0.5-1.4) mg/dL Estim Creat Clear Calc 68.5 Estimated GFR > 60 Random Glucose 108 (60-115) mg/dL Calcium 9.1 (8.4-10.2) mg/dL Magnesium 2.0 (1.6-2.6) mg/dL Total Bilirubin 0.6 (0.0-1.0) mg/dL AST 35 H (5-31) U/L ALT 14 (0-31) U/L Alkaline Phosphatase 97 (39-117) U/L Total Protein 7.1 (6.5-8.0) g/dL Albumin 4.2 (3.5-5.0) g/dL Lipase 26 (8-78) U/L Urine Color Yellow Urine Appearance Clear Urine pH 6.5 (5.0-9.0) Ur Specific [place] <= 1.005 (1.005-1.025) Urine Protein Negative (Neg-Trace) mg/dL Urine Glucose (UA) Negative (Negative) mg/dL Urine Ketones Negative (Negative) mg/dL Urine Blood Negative (Negative) Urine Nitrite Negative (Negative) Ur Leukocyte Esterase Negative (Negative) Urine RBC 0-2 (0-2) /HPF Urine WBC 0-5 (0-5) /HPF Ur Squamous Epith Cells 0-2 (0-2) /HPF Urine Bacteria None Seen (None Seen) Hyaline Casts 0-2 (0-2) /LPF Stl C. cayetanensis PCR Not Detected (Not Detect.) Stool Rotavirus A PCR Not Detected (Not Detect.) Stl Adenov F 40/41 PCR Not Detected (Not Detect.) Stool Astrovirus (PCR) Not Detected (Not Detect.) Stool Campylobacter PCR Not Detected (Not Detect.) Stool Cryptosporidium PCR Not Detected (Not Detect.) Stl Sh Tox Pr E STEC PCR Not Detected (Not Detect.) Stool E coli O157 PCR Not applicable (Not Detect.) Stl Enterotoxigenic E PCR Not Detected (Not Detect.) Stool EPEC (PCR) Not Detected (Not Detect.) Stool EAEC (PCR) Not Detected (Not Detect.) Stl E. histolytica PCR Not Detected (Not Detect.) Stool Giardia Lamblia PCR Not Detected (Not Detect.) Stl P. shigelloides PCR Not Detected (Not Detect.) Stool Salmonella PCR Not Detected (Not Detect.) Stool Sapovirus (PCR) Not Detected (Not Detect.) Stl Shigella/EIEC PCR Not Detected (Not Detect.) St Y.enterocolitica PCR Not Detected (Not Detect.) Stool Vibrio (PCR) Detected A (Not Detect.) Stl Vibrio cholerae PCR Not Detected (Not Detect.) Stl Norovirus GI/GII PCR Not Detected (Not Detect.) Influenza Type A (PCR) NEGATIVE (Negative) Influenza Type B (PCR) NEGATIVE (Negative) RSV RNA Qual (PCR) NEGATIVE (Negative) SARS-CoV-2 RNA (RT-PCR) NEGATIVE (Negative) Independent Interpretation I performed an independent interpretation of an: EKG (58 beats per minute otherwise normal ECG without dysrhythmia, AV darvin blocks or ST-T changes to suspect underlying ACS, my independent interpretation) Discharge Plan Discharge Clinical Impression: Unsteady gait, Vertigo, Iliotibial band syndrome Patient Disposition: Home, Self-Care Additional Instructions: Your workup in the emergency department has been reassuring, you had an EKG, blood work, there is support for dehydration based on the blood work and also sounds like you have had vertigo early in the morning, you scopolamine as needed, you can keep [address] for the next 3 days you can get it wet as well. Otherwise I gave you medications for symptom control as well as fluids I am reassured by examined vital signs. I sent a referral to your PCP and recommended that you have an outpatient brain MRI. And physical examination on your right hip is consistent with iliotibial band syndrome/greater trochanteric bursitis, I recommend steroid pack starting tomorrow, and sweet pickled fruit maker [id number] capsaicin ointment patches, they come and a strip of threezee can cut him into smaller strips and paste along the band on the right side Stool sample is still pending, you get a phone call if it comes back positive. Prescriptions: New scopolamine base 1 mg over 3 days patch 3 day 1 patch transdermal Q3D PRN (Reason: vertigo) 7 Days Qty: 4 0RF methylprednisolone [Medrol (Andrés)] 4 mg tablets,dose pack 4 mg PO DAILY Qty: 21 0RF Rx Instructions: Day 1: 24 mg on day 1 administered as 8 mg before breakfast, 4 mg after lunch, 4 mg after supper, and 8 mg at bedtime or 24 mg as a single dose or divided into 2 or 3 doses upon initiation. Day 2: 20 mg on day 2 administered as 4 mg before breakfast, 4 mg after lunch, 4 mg after supper, and 8 mg at bedtime. Day 3: 16 mg on day 3 administered as 4 mg before breakfast, 4 mg after lunch, 4 mg after supper, and 4 mg at bedtime. Day 4: 12 mg on day 4 administered as 4 mg before breakfast, 4 mg after lunch, and 4 mg at bedtime. Day 5: 8 mg on day 5 administered as 4 mg before breakfast and 4 mg at bedtime. Day 6: 4 mg on day 6 administered as 4 mg before breakfast. No Action ibuprofen 600 mg tablet 600 mg PO Q8H PRN (Reason: pain) Qty: 14 0RF lidocaine HCl [Lidocaine Viscous] 2 % solution 1 appl mucous membrane BID PRN (Reason: pain) Qty: 100 0RF Rx Instructions: Swish and spit Referrals: Margo Collazo CNP [Primary Care Provider, Family Practice] - 2 weeks Referral Note: I believe patient requires outpatient brain MRI for evaluation of chronic unsteady gait Clinical Impression: Unsteady gait Interventions: ED Discharge Assessment Last Done: 09/26/24 18:11 Discharge Date/Time: 09/26/24 18:11 Print Language: Upper Sorbian
--- NOTE | 2024-09-26 12:09 | ECG_ITS ---
Test Reason : fall Blood Pressure : */* mmHG Vent. Rate : 58 BPM Atrial Rate : 58 BPM P-R Int : 132 ms QRS Dur : 132 ms QT Int : 452 ms P-R-T Axes : 40 4 18 degrees QTcB Int : 443 ms Sinus bradycardia Right bundle branch block Abnormal ECG No previous ECGs available Referred By: Edson Willingham Electronically Signed By: Jovan Doss
[2024-09-26 13:28] LABS: MANUAL DIFF FLAG NO
[2024-09-26 13:32] LABS: Hematocrit 38.1 % (37.0-47.0); Hemoglobin 12.7 g/dl (12.0-16.0); Imm Gran Abs Auto 0.03 X10*3/uL (0.00-0.03); Imm Gran Pct Auto 0.4 % (0.0-0.4); Lymphocytes Absolute Auto 1.5 X10*3/uL (1.2-4.9); Mean Corpuscular HGB Conc 33.3 g/dl (31.0-35.0); Mean Corpuscular Hemoglobin 28.0 pg (27.0-33.0); Mean Corpuscular Volume 83.9 fL (80.0-98.0); NRBC Abs Auto 0.000 X10*3/uL (0.0-0.012); NRBC Pct Auto 0.0 /100WBC (0.0-0.2); Platelet Count 245 X10*3/uL (160-400); Red Blood Count 4.54 X10*6/uL (4.20-5.50); White Blood Count 7.3 X10*3/uL (4.8-10.8)
[2024-09-26 13:46] LABS: Alanine Aminotransferase 14 U/L (0-31); Albumin Level 4.2 g/dL (3.5-5.0); Alkaline Phosphatase 97 U/L (39-117); Anion Gap 11 (12-20); Aspartate Amino Transferase 35 U/L (5-31); Blood Urea Nitrogen 18 mg/dL (9-16); Calcium 9.1 mg/dL (8.4-10.2); Carbon Dioxide 27 mmol/L (22-29); Chloride 107 mmol/L (96-108); Creatinine Clr Calc Pharmacy 68.5; Estimated Glomerular Filt Rate > 60; Lipase 26 U/L (8-78); Magnesium 2.0 mg/dL (1.6-2.6); Potassium 4.3 mmol/L (3.3-5.1); Sodium 141 mmol/L (135-145); Total Protein 7.1 g/dL (6.5-8.0)
[2024-09-26 14:21] LABS: Resp Syncy Virus RNA Qual PCR NEGATIVE (Negative); SARS COV2 PCR INHOUSE NEGATIVE (Negative)
--- OUTSIDE RECORDS SUMMARY | 2024-09-26 14:29 | XMS_ITS | Encounter Summary ---
Author Organization [facility] Address [address] [place] [id number] Phone Care Team Providers Care Jewelry Facer Name Role Phone Gema Castro MD Primary Care Provider Leandro Mckeon MD Primary Care Provid er Encounter Details Date Type Department Care Team (Late st Contact Info) Description 08/15/2018 Procedure Pass [address] [place] [address] Social History Tobacco Use Types Packs/Day Years Used Date Smoking Tobacco: Never Smokeless Tobacco: Never Alcohol Use Standard Drinks/Week Comments Yes 0 (1 standard drink = 0.6 oz pur e alcohol) social Comments No Sex and Gender Information Value Date Recorded Sex Assigned at Not on file Legal Sex Female 6:32 PM EST Gender Identity Not on file Sexual Orientation Not on file documented as of this encounter Plan of Treatment Not on file documented as of this encounter Visit Diagnoses Not on filedocumented in this encounter Care Teams Jewelry Facer Relationship Specialty Start Date End Date Gema Castro MD [address] [place] [address] PCP - General Internal Medicine 01/30/18 11/14/21 Leandro Mckeon MD [address] [place] [address] PCP - General Internal Medicine 11/15/21 documented as of this encounter Additional Source Comments The information contained in this document represents components of the legal health record. It is not the complete legal health record.[facility]
--- OUTSIDE RECORDS SUMMARY | 2024-09-26 14:29 | XMS_ITS | Patient Health Record ---
Author Organization [facility] Address [address] [place] [address] Care Team Providers Care Training Personnel Supervisor Name Role Phone LONNIE (RETIRED) Jessie, VAN Primary Care Provider Unavailable Lidia Bolanos Unavailable [phone] Allergies Allergen (clinical drug ingredient) Drug/Non Drug Allergy documented on EMR Reaction Allergy Type Onset Date Status VICODIN Nausea/Vomiting/ Diarrhea Drug Allergy Active Reason For Referral No Information Medications Medication SIG (Take, Route, Fr equency, Duration) Notes Start Date End Date Status Levoxyl 50MCG 1 ORAL daily; Duration: -3 Cody-MJ 2 Active Simvastatin 40MG 1 ORAL daily; Duration: -3 Cody-MJ 2011 Active Social History Sexual History Question Answer Notes Had sex in the past 12 months (vaginal, oral, or anal)? No Problems Problem Type SNOMED Code ICD Code Onset Dates Problem Status W/U Status Risk Notes Problem Postmenopausal atrophic vaginitis (17336162) Postmenopausal atrophic vaginitis (N95.2) Active confirmed Problem Malignant neoplasm of female breast (821157698) Malignant neoplasm of unspecified site of left female breast (C50.912) Active confirmed Problem Malignant neoplasm of female breast (967996336) Malignant neoplasm of other specified sites of female breast (174.8) Active confirmed Diag Problem Hypothyroidism (35516991) Unspecified hypothyroidism (244.9) Active confirmed Major Problem Hyperlipidemia (09111503) Other and unspecified hyperlipidemia (272.4) Active confirmed Major Problem Esophageal reflux (849025657) Esophageal reflux (530.81) Active confirmed Major Problem Menopausal symptom (51506490) Symptomatic menopausal or female climacteric states (627.2) Active confirmed Major Problem Gynecological examination normal (446194856447982) Routine gynecological examination (V72.31) Active confirmed Major Problem Screening for malignant neoplasm of colon (762189552) Special screening for malignant neoplasms, colon (V76.51) Active confirmed Major Plan Of Treatment Pending Test Test Name Order Date MAMMOGRAM, SCREENING 12/28/2014 MAMMOGRAM, SCREENING 01/05/2016 MM Digital Mammo Screening 01/05/2016 Insurance Providers Payer Name Payer Address Payer Phone Subscriber Number Group Number Insured Name Patient Relationship to Insured Coverage Start Date Coverage End Date [employer] [place] [address] [place] [address] [id number] MIYA SAUNDERS Self - patient is the [...]
--- OUTSIDE RECORDS SUMMARY | 2024-09-26 14:29 | XMS_ITS | Clinical Summary ---
Author Organization [facility] Address [address] [place] [address] Care Team Providers Care Numerical Control Operator Name Role Phone Sid Best MD Primary Care Provider [phone] Allergies Active Allergy Reactions Criticality Noted Date [...] 58 08/21/2023 3:48 PM EDT Temperature 36.8 C (98.3 F) 08/21/2023 3:48 PM EDT Respiratory Rate - - Oxygen Saturation 98% [...] risk series) 06/30/2020 06/09/2020 Influenza Vaccine (#1) 2024 RSV Adult > 60+ Yrs or Pregn ant (1 - 1-dose 75+ series) 2029 Hepatitis B Vaccines Aged Out No long er eligible based on patient's age to complete this topic RSV Ped < 20 months Aged Out No longe r eligible based on patient's age to complete this topic Care Teams Numerical Control Operator Relationship Specialty Start Date End Date Sid Best MD PCP - General Internal Medicine 08/21/23
--- OUTSIDE RECORDS SUMMARY | 2024-09-26 14:29 | XMS_ITS | Encounter Summary ---
Author Organization [facility] Address [address] [place] [address] Care Team Providers Care Supervisor Laboratory Animal Facility Name Role Phone Margo Collazo NP Primary Care Provider [phone] Reason for Visit * Reason Onset Date Comments Dizziness 09/26/2024 Nausea 09/26/2024 Encounter Details Date Type Department Care Team (Late st Contact Info) Description 09/26/2024 Telephone Internal Medicine [facility] [place] [address] [place] [address] Margo Collazo NP [address] [place] [address] Dizziness; Nausea Social History Tobacco Use Types Packs/Day Years Used Date Smoking Tobacco: Former Cigarettes Smokeless Tobacco: Never Alcohol Use Standard Drinks/Week Comments Not Currently 0 (1 standard drink = 0.6 oz pur e alcohol) Comments No Sex and Gender Information Value Date Recorded Sex Assigned at Female 08/27/2024 11:37 AM EDT Legal Sex Female 1:32 PM EST Gender Identity Female 08/27/2024 11:37 AM EDT Sexual Orientation Straight 08/27/2024 11 :37 AM EDT documented as of this encounter Progress Notes * Maryam Barrera MA - 09/26/2024 1:19 PM EDT Pt is at ER already will call back to make f/u if needed * Margo Collazo NP - 09/26/2024 12:30 PM EDT I am not ordering tests on the patient who has not been evaluated. Again we can recommend she go [facility] ER or she can go to an urgent care if she prefers. * Laurie Camara RN - 09/26/2024 9:51 AM EDT Spoke with the patient c/o dizzy , nauseous b/p elevated , advised to have someone drive her to the for evaluation. She refusing to go the wait is too long. Admitted to falling a few days ago and hitting her head . Again advised to go to ER still refusing just wants a Cat Scan ordered . Please review and advise Thank you * Catherine Boyle - 09/26/2024 9:40 AM EDT Patient call requires triage: Symptoms patient is presenting: dizzy spells, feels like room is spinning, nausea, light headed How long has patient had these symptoms?: today For ALL patients calling to schedule any appointment (routine, sick visit, follow up, consult, etc.) in the outpatient setting please ask the following questions: Do you have fever of higher than 101, sore throat with difficulty swallowing or severe shortness ofbreath? no If YES to any of these above symptoms, send a message to triage and do not book. Red dot. If no, an audio or video visit should be booked. Have you had close contact with someone with Coronavirus in the last 14 days? no Have you traveled abroad? no Have you traveled recently to another state outside of [place], [place], [place], [place], [place], [place], [place]? no o If yes, did you quarantine for 14 days or have a negative covid test? no If yes to any of the above, patient is not to be scheduled in office until after 14 day quarantine or negative covid test. If pain or injury related was it due to an accident at work or from a motor vehicle accident? If yes, date of accident/Injury: No If yes, gather 3rd green party insurance information Third Democrat Information: not applicable PCP: Margo Collazo NP Payor: [employer] - [place] MEDICARE ADVANTAGE / Plan: [facility] MED[facility] ADVANTAGE / Product Type: *No Product type* / documented in this encounter Plan of Treatment Upcoming Encounters Date Type Department Care Team (Late st Contact Info) Description 10/13/2024 10:45 AM EDT Office Visit Orthopedics - [place] [address] [place] [address] Waqas Jaramillo PA [address], [place] 10/21/2024 10:00 AM EDT Appointment [facility] Bone Density [address] [place] [phone] 10/21/2024 10:45 AM EDT [facility]ointment [facility] [address] [phone] 12/17/2024 10:30 AM EDT Consult Bariatric Surgery - [place] [address] [phone] Aarti Yip PA [address] [address] 02/04/2025 1:00 PM EST Office Visit Internal Medicine - [place] [address] [place] [address] Margo Collazo NP [address] [place] [address] 03/17/2025 3:45 PM EST Office Visit [facility] Hematology Oncology [address] [place] [phone] Chris Richey MD [address] [place] [address] documented as of this encounter Visit Diagnoses Not on filedocumented in this encounter Care Teams Supervisor Laboratory Animal Facility Relationship Specialty Start Date End Date Margo Collazo NP [address] [facility] [place] [address] PCP - General Primary Care 01/23/24 documented as of this encounter
[2024-09-26 14:41] VITALS: BP 168/70; PULSE 56
[2024-09-26 14:43] VITALS: BP 162/78; PULSE 60
[2024-09-26 14:44] VITALS: BP 155/84; PULSE 71
[2024-09-26 16:23] VITALS: BP 145/68; PULSE 59; RESP 16; TEMP 36.6; O2SAT 96
[2024-09-26 17:17] LABS: Appearance Urine Clear; Glucose Urine UA Negative (Negative); PH 6.5 (5.0-9.0); Specific Gravity - Urine <= 1.005 (1.005-1.025)
[2024-09-26 18:11] VITALS: BP 145/68; PULSE 59; RESP 16; TEMP 36.6; O2SAT 96
[2024-09-27 10:00] LABS: E. coli EAEC Not Detected (Not Detect.); E. coli EPEC Not Detected (Not Detect.); E. coli ETEC Not Detected (Not Detect.); E. coli STEC Not Detected (Not Detect.); Shigella sp./EIEC Not Detected (Not Detect.)
== END 2024-09-26 18:11 | disposition home or self-care (01) ==
PROVIDERS: Physician Assistant; Emergency Provider Emergency Medicine; PCP Nurse Practitioner Primary Care
DX: R26.81 Unsteadiness on feet (principal); R42 Dizziness and giddiness; R11.0 Nausea; R19.7 Diarrhea, unspecified; M76.32 Iliotibial band syndrome, left leg; M76.31 Iliotibial band syndrome, right leg; Z03.818 Encounter for observation for suspected exposure to other biological agents ruled out; Z79.899 Other long term (current) drug therapy
CPT/HCPCS: 80053; 81001; 83690; 83735; 85025; 87507; 87637; 93005; 96361; 96374; 96375; 99284; J1308; J2405

== ENCOUNTER → 2024-09-26 12:09 | Outpatient (BNV) | payer MEDICARE, SELFPAY | PROVIDERS: Emergency Provider Emergency Medicine; PCP Nurse Practitioner Primary Care; Visit Provider Internal Medicine Cardiovascular Disease | DX: I45.10 Unspecified right bundle-branch block (principal); R00.1 Bradycardia, unspecified | CPT/HCPCS: 93010 ==